=== PATIENT | male | born 1970 | race Caucasian/White ===

== ENCOUNTER → 2024-01-10 | Outpatient (CLI) | payer MEDICARE, OTHER ==
--- NOTE | 2024-01-13 21:18 | US ---
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 Unremarkable renal ultrasound. 2. Nonvisualization of ureteral jets during this exam [facility] Luc[facility] Bynum, , 01/13/2024 9:15 PM
== END | disposition home or self-care (01) ==
LOC: RADUSWWP 15:20
PROVIDERS: ATTEND Family Medicine
DX: M54.50 Low back pain, unspecified (principal); R53.83 Other fatigue; F79 Unspecified intellectual disabilities
CPT/HCPCS: 76770

== ENCOUNTER 2024-05-28 07:19 | Day surgery (SDC) | payer MEDICARE, OTHER ==
[2024-05-27 10:17] VITALS: BMI 23.1
[2024-05-28] MEDS: LACTATED RINGERS 1,000 ML IV ONE (07:35)
[2024-05-28 07:45] VITALS: TEMP 97.7
[2024-05-28] MEDS: LACTATED RINGERS 1,000 ML IV SCH (07:58)
[2024-05-28] MEDS ORDERED: PROPOFOL 10 MG/ML 20 ML VIAL IV ONE (08:02)
--- NOTE | 2024-05-28 08:44 | P.PCN ---
Date of Procedure: 05/28/24 Procedure(s) Performed: Brief history: Patient is a pleasant 54-year-old white male with history of developmental delay scheduled for an elective upper endoscopy as well as colonoscopy as a part of evaluation of abdominal pain, chronic diarrhea and progressive weight loss of 36 pounds in the last several months duration. Procedure performed: Esophagogastroduodenoscopy with biopsy Colonoscopy with biopsy Preoperative diagnosis: Abdominal pain/weight loss Chronic diarrhea [place] [facility] [place]: After informed consent was obtained from the patient was brought into the endoscopy unit and IV sedation was administered by anesthesia under continuous monitoring. Initially upper endoscopy was done. The Olympus GF 160 video endoscope was inserted inserted into the mouth and esophagus intubated without any difficulty and was gradually advanced into the stomach and duodenum and carefully examined. The bulb and second part of the duodenum appeared normal. These were done from the duodenum to rule out celiac disease. The scope was then withdrawn into the stomach adequately insufflated with air and upon careful examination the antrum had mild gastritis and biopsies were done from this area. Mucosa d body, cardia and fundus appeared normal. The scope was then withdrawn into the esophagus. Small hiatal hernia noted. The GE junction was located at 40 cm to the incisors. It appeared regular with 2 superficial erosions consistent with LA grade B reflux esophagitis. Rest of the esophagus appeared normal. Patient tolerated the procedure well. At this time the patient continued to remain sedation. Initial digital rectal examination was normal. Olympus CF 160 video colonoscope was then inserted into the rectum and gradually advanced to the cecum without any difficulty. Careful examination was performed as the scope was gradually being withdrawn. The prep was excellent. Terminal ileum was intubated and 20 cm visualized and appeared normal. The cecum, ascending colon, transverse colon, descending colon, sigmoid colon and rectum appeared normal. Random biopsies were done from the ascending and descending colon rule out microscopic/collagenous colitis retroflexion was performed in the rectum and no lesions were noted. Patient tolerated the procedure well. Impression: 1. Upper endoscopy revealed mild antral gastritis, small hiatal hernia and LA grade B reflux esophagitis 2. Colonoscopy was within normal limits with no evidence of colitis or colorectal neoplasia Recommendations: Findings of this examination were discussed with the patient as well as his family. He was advised to follow-up with the biopsy results. He will be seen in the office in 2 weeks. Recommended repeat screening colonoscopy in 10 years.
[2024-05-28 08:54] VITALS: RESP 16
[2024-05-28 09:04] VITALS: BP 120/85; PULSE 86
== END 2024-05-28 09:19 | disposition home or self-care (01) ==
LOC: ORWHC2ENDO 07:19
PROVIDERS: ATTEND Internal Medicine Gastroenterology
DX: K29.50 Unspecified chronic gastritis without bleeding (principal); K21.00 Gastro-esophageal reflux disease with esophagitis, without bleeding; K44.9 Diaphragmatic hernia without obstruction or gangrene
CPT/HCPCS: 88305; 45380; 43239; J2704

== ENCOUNTER → 2024-06-26 | Outpatient (CLI) | payer MEDICARE, OTHER ==
--- NOTE | 2024-06-26 17:38 | CT ---
EXAMINATION TYPE: CT ChestAbdPelvis w con DATE OF EXAM: 06/26/2024 5:24 PM COMPARISON: None. CLINICAL INDICATION: Male, 54 years old with history of R63.4 ABNORMAL WEIGHT LOSS, TECHNIQUE: CT imaging performed with sagittal coronal reformats. CT scan of the chest, abdomen and pe lvis is performed with Oral Contrast and with IV Contrast, patient injected with 100ml mL of Isovue [address] DLP: 1033.40 mGycm, Automated exposure control for dose reduction was used. FINDINGS: CT Chest: LUNGS: The lungs are clear and free of infiltrate or atelectasis. No pulmonary nodule or mass is det ected. No pleural effusion or CT evidence of interstitial lung disease. MEDIASTINUM: Thoracic aorta is of normal caliber. The heart is not enlarged. No evidence for media stinal mass or adenopathy. HEART: Size within normal limits. No significant coronary artery calcifications. HILAR STRUCTURES: No evidence for mass. No hilar adenopathy is appreciated. OTHER: No significant abnormality. CONTRAST CT ABDOMEN AND PELVIS FINDINGS: LIVER/GB: No calcified gallstones. No space occupying hepatic lesion. Biliary tree is of normal ca liber. PANCREAS: No inflammation. No distinct mass. SPLEEN: No splenic enlargement. No lesion seen. ADRENALS: No nodule. No thickening. KIDNEYS/BLADDER: No hydronephrosis. No nephrolithiasis. No disctinct renal mass. BOWEL: Normal appendix. Normal bowel caliber. No inflammation. GENITAL ORGANS: No gross abnormality. LYMPH NODES: No greater than 1cm abdominal or pelvic lymph nodes are appreciated. AORTA: No significant abnormality. OSSEOUS STRUCTURES: No significant abnormality is seen. OTHER: No significant additional abnormality is seen. IMPRESSION: 1. No distinct abnormality to account for the patient's symptoms. [facility], , 06/26/2024 5:35 PM
== END | disposition home or self-care (01) ==
LOC: RADCTMAIN 15:19
PROVIDERS: ATTEND Internal Medicine Gastroenterology
DX: R63.4 Abnormal weight loss (principal)
CPT/HCPCS: 71260; 74177; Q9967